=== PATIENT | male | born 1930 | race Caucasian/White ===

== ENCOUNTER 2020-02-05 21:27 | Emergency (ER) | payer OTHER ==
[~2020-02-05] VITALS: Ht 170.2 cm; Wt 68.0 kg
[2020-02-05 21:27] VITALS: BP_SYST 132
[2020-02-05] MEDS ORDERED: LIDOCAINE VISCOUS 2%, 15 ML UDC ONE (23:48)
[2020-02-06 00:56] VITALS: BP_SYST 128
== END 2020-02-06 00:56 | disposition home or self-care (01) ==
LOC: SED 21:27
DX: T83.091A Other mechanical complication of indwelling urethral catheter, initial encounter (principal); I10 Essential (primary) hypertension; Z86.2 Personal history of diseases of the blood and blood-forming organs and certain disorders involving the immune mechanism; Z87.440 Personal history of urinary (tract) infections; Z79.899 Other long term (current) drug therapy; Y92.89 Other specified places as the place of occurrence of the external cause
CPT/HCPCS: 51702; 99284; J2001; 99283